=== PATIENT | male | born 1980 | race African-American/Black ===

== ENCOUNTER 2018-06-13 06:31 | Day surgery (SDC) | payer OTHER ==
[2018-06-13] MEDS: EPINEPHrine 1 MG/ML 30 ML INJ IRR ×3 (09:55→13:57)
[2018-06-13] MEDS ORDERED: ONDANSETRON 4 MG INJ IV (10:00)
[2018-06-13] MEDS ORDERED: HYDROmorphONE 1 MG/5 ML IV SYRINGE IV ×2 (10:00)
[2018-06-13] MEDS ORDERED: METOCLOPRAMIDE 10 MG INJ IV (10:00)
[2018-06-13] MEDS ORDERED: LEVALBUTEROL (NEB) 0.63 MG/3 ML AMP HHN (10:00)
[2018-06-13] MEDS ORDERED: DIPHENHYDRAMINE 50 MG INJ IV (10:00)
[2018-06-13] MEDS ORDERED: FENTAnyl 50 MCG/ML VIAL IV ×2 (10:00)
[2018-06-13] MEDS ORDERED: MEPERIDINE 25 MG INJ IV (10:00)
[2018-06-13] MEDS ORDERED: MIDAZOLAM 1 MG/ML 2 ML INJ (10:09)
[2018-06-13] MEDS ORDERED: FENTAnyl 50 MCG/ML VIAL (10:09)
[2018-06-13] MEDS ORDERED: ROPIVACAINE 0.5 % 30 ML VIAL (10:16)
[2018-06-13] MEDS ORDERED: ROCURONIUM 50 MG INJ ×3 (11:32→14:07)
[2018-06-13] MEDS: POLYMYXIN/BACITRACIN 1L IRRIG (11:43)
[2018-06-13] MEDS ORDERED: CEFAZOLIN 1 GM INJ (14:07)
[2018-06-13] MEDS ORDERED: LIDOCAINE 100 MG SYRINGE (14:07)
[2018-06-13] MEDS ORDERED: PROPOFOL 20 ML (14:07)
[2018-06-13] MEDS ORDERED: SUCCINYLCHOLINE CHLORIDE 100 MG/5 ML SYG IV (14:07)
[2018-06-13] MEDS ORDERED: SUGAMMADEX SODIUM 200 MG/2 ML VIAL IV (14:08)
[2018-06-13] MEDS: morphine SULFATE/PF (10 MG/10 ML) INJ (14:35)
[2018-06-13] MEDS: ALBUTEROL 0.083% (NEB) 2.5 MG/3 ML AMP HHN (15:02)
[2018-06-13] MEDS: HYDROmorphONE 1 MG/5 ML IV SYRINGE IV (15:15)
== END 2018-06-13 16:24 | disposition home or self-care (01) ==
LOC: SDS 06:31
DX: S83.281A Other tear of lateral meniscus, current injury, right knee, initial encounter (principal); S83.241A Other tear of medial meniscus, current injury, right knee, initial encounter; S83.511A Sprain of anterior cruciate ligament of right knee, initial encounter; M25.561 Pain in right knee; J45.998 Other asthma; X58.XXXA Exposure to other specified factors, initial encounter; Y93.89 Activity, other specified; Y92.89 Other specified places as the place of occurrence of the external cause; Y99.8 Other external cause status
CPT/HCPCS: 29880; 94664